=== PATIENT | male | born 1965 | race American Indian/Alaskan Native ===

== ENCOUNTER 2018-11-13 06:31 | Day surgery (SDC) | payer MEDICARE ==
[2018-11-13] MEDS ORDERED: NACL 0.9% 1000 ML 1,000 ML IV SCH (07:00)
[2018-11-13] MEDS ORDERED: VERSED ONE (08:06)
[2018-11-13] MEDS ORDERED: DIPRIVAN 10 MG/ML IV ONE ×2 (08:06→08:20)
--- NOTE | 2018-11-13 08:44 | Short Stay Summary ---
Short Stay Documentation - Allergies and Medications Current Medications: Allergies No Known Allergies Allergy (Verified 11/12/18 14:08) Home Medications Medication Instructions Recorded Confirmed Last Taken Type Amlodipine/Valsartan/Hcthiazid 1 tab PO DAILY 11/12/18 11/12/18 11/12/18 History Prozac 1 tab PO DAILY 11/12/18 11/13/18 11/12/18 History Metoprolol 50 mg PO DAILY 11/13/18 11/13/18 11/12/18 History Active Medications Sodium Chloride (Nacl 0.9% 1000 Ml) 1,000 mls @ 50 mls/hr IV DIRECT LUX Last Admin: 11/13/18 07:53 Dose: 50 mls/hr Documented by: - Brief post op/procedure progress note Date of procedure: 11/13/18 Pre-op diagnosis: colon cancer screening Post-op diagnosis: same (1. Colon polyp 2. Internal hemorrhoids 3. Diverticu losis (mild)) Procedure: Colonoscopy with snare polypectomy Anesthesia: MAC Findings: as above Surgeon: RUBA WILLOUGHBY Estimated blood loss: none Pathology: list (Rectal polyp) Specimen disposition: to lab Condition: stable - Disposition Condition at discharge: Stable Disposition: [id number] TO HOME OR SELFCARE Short Stay Discharge Plan Activity: no restrictions Weight Bearing Status: Full Weight Bearing Diet: regular, low salt
[2018-11-13 10:02] VITALS: BP 152/93
== END 2018-11-13 06:32 | disposition home or self-care (01) ==
LOC: GIO 06:31
PROVIDERS: ATTEND Internal Medicine Gastroenterology
DX: Z12.11 Encounter for screening for malignant neoplasm of colon (principal); D12.8 Benign neoplasm of rectum; K64.0 First degree hemorrhoids; E78.5 Hyperlipidemia, unspecified; I12.9 Hypertensive chronic kidney disease with stage 1 through stage 4 chronic kidney disease, or unspecified chronic kidney disease; N18.3 Chronic kidney disease, stage 3 (moderate); K57.30 Diverticulosis of large intestine without perforation or abscess without bleeding; E78.00 Pure hypercholesterolemia, unspecified; Z79.899 Other long term (current) drug therapy; Z98.49 Cataract extraction status, unspecified eye
CPT/HCPCS: 45385; 88305; J2250; J2704; J7030